=== PATIENT | female | born 1950 | race Caucasian/White ===

== ENCOUNTER 2021-03-04 19:51 | Emergency (ER) | payer MEDICARE ==
[~2021-03-04] VITALS: Ht 162.6 cm; Wt 95.4 kg
[2021-03-04 21:24] LABS: BASOPHILS % 0.3 % (0.0-2.0); EOSINOPHILS % 2.1 % (0.0-5.0); HEMATOCRIT. 34.2 % (36.0-48.0); LYMPHOCYTES % 16.8 % (20.0-50.0); MEAN CORPUSCULAR VOLUME 77.4 fL (81.0-99.0); MEAN PLATELET VOLUME 7.5 fl (7.4-10.4); MONOCYTES % 6.6 % (2.0-8.0); NEUTROPHILS % 74.2 % (40.0-76.0); PLATELET 247 x1000/uL (130-400); RED BLOOD CELL COUNT 4.41 mill/uL (4.2-5.4); RED CELL DISTRIBUTION WIDTH 17.7 % (11.6-14.6)
[2021-03-04 21:30] LABS: CHLORIDE 104 mEq/L (98-107)
[2021-03-04] MEDS ORDERED: CLIN300C12 MT (22:54)
[2021-03-04] MEDS ORDERED: ASPI-1497 MT (22:54)
[2021-03-04] MEDS ORDERED: CLINDAMYCIN 300 MG in DEXTROSE 5% WATER 50 ML IV ONE (23:00)
[2021-03-04 23:30] VITALS: BP 134/73
== END 2021-03-05 | disposition home or self-care (01) ==
LOC: ER 19:51
DX: K12.2 Cellulitis and abscess of mouth (principal); R20.2 Paresthesia of skin; R00.0 Tachycardia, unspecified
CPT/HCPCS: 36415; 70450; 80053; 82962; 85025; 87040; 93005; 96365; 99291; J3490; J7060; 99285